=== PATIENT | male | born 1965 | race Caucasian/White ===

== ENCOUNTER → 2023-04-08 | Day surgery (SDC) | payer MEDICAID ==
[~2023-04-08] VITALS: Ht 180.3 cm; Wt 99.8 kg
[~2023-04-08] MED LIST: AMLO5TAB88 PO; ASPI-1497 PO; ATOR-2 PO; BALANCED SALT IRRIG SOLN 15ML ONE; BUPIVACAINE HCL/PF 0.75% (7.5MG/ML) 10ML ONE; CIPROFLOXACIN 0.3% OPHTH SOLN 2.5ML ONE; CLOP75TA33 PO; FENTANYL CITRATE/PF 50MCG/ML 2ML VIAL ONE; HYDR25TA PO; LACTATED RINGERS 1,000 ML IV SCH; LIDOCAINE HCL/PF 2% 20MG/ML 5 ML/VIAL ONE; LOSA100T32 PO; MIDAZOLAM HCL 2 MG/2 ML VIAL ONE; NEO/POLYMYX B SULF/DEXAMETH OPHTH OINT 3.5GM ONE; PREDNISOLONE ACETATE 1% OPHTH DROPS 5ML ONE; PROPOFOL 200MG/20ML VIAL IV ONE; TETRACAINE 0.5% OPHTH DROPS 4ML ONE; TRIAMCINOLONE ACETONIDE 40MG/ML 1ML VIAL ONE
== END | disposition home or self-care (01) ==
LOC: OR 05:35
PROVIDERS: ATTEND Ophthalmology
DX: H11.001 Unspecified pterygium of right eye (principal); I10 Essential (primary) hypertension; E78.00 Pure hypercholesterolemia, unspecified; Z86.73 Personal history of transient ischemic attack (TIA), and cerebral infarction without residual deficits; Z79.899 Other long term (current) drug therapy; Z98.890 Other specified postprocedural states; Z79.82 Long term (current) use of aspirin; Z20.822 Contact with and (suspected) exposure to COVID-19
CPT/HCPCS: 65420; 87426; C9803; J2250; J2704; J3010; J3301; J3490